=== PATIENT | male | born 1995 | race Caucasian/White ===

== ENCOUNTER 2023-11-17 17:00 | Inpatient (IN) | payer OTHER ==
[2023-11-17] MEDS ORDERED: Sodium Chloride 0.9% 20 ML SDV IV PRN (17:08)
[2023-11-17 17:16] LABS: BASOPHILS ABSOLUTE AUTO 0.02 K/uL (0.00-0.20); BASOPHILS PERCENT AUTO 0.2 % (0.0-1.0); HEMATOCRIT 38.1 % (42.0-52.0); HEMOGLOBIN 13.3 g/dL (14.0-18.0); IMMATURE GRAN ABSOLUTE AUTO 0.05 K/uL (0.00-0.05); IMMATURE GRAN PERCENT AUTO 0.5 % (0.0-0.4); LYMPHOCYTES ABSOLUTE AUTO 2.32 K/uL (1.00-4.80); LYMPHOCYTES PERCENT AUTO 24.4 % (24.0-44.0); MEAN CORPUSCULAR HEMOGLOBIN 29.7 pg (28.0-32.0); MEAN CORPUSCULAR HGB CONC 34.9 g/dL (32.0-36.0); MEAN PLATELET VOLUME 10.6 fL (9.4-12.4); MONOCYTES PERCENT AUTO 5.3 % (0.0-8.0); NEUTROPHILS ABSOLUTE AUTO 6.62 K/uL (1.80-7.70); NEUTROPHILS PERCENT AUTO 69.6 % (41.0-71.0); PLATELET COUNT,PLT 203 K/uL (150-400); RED BLOOD CELL COUNT 4.48 M/uL (4.52-5.90); WHITE BLOOD CELL COUNT,WBC 9.51 K/uL (3.9-11.3)
[2023-11-17] MEDS: Midazolam 1 MG/ML 2 ML SDV IVPUSH ONE (17:22)
[2023-11-17 17:30] LABS: INR 1.03 (0.86-1.11); PTT,PARTIAL THROMBOPLSTIN TIME 25.8 SEC (23.9-30.7)
[2023-11-17 17:44] LABS: A/G RATIO 1.1 (0.9-1.6); ALBUMIN 3.6 g/dL (3.4-5.0); BILIRUBIN TOTAL 0.6 mg/dL (0.2-1.0); CALCIUM 8.3 mg/dL (8.5-10.1); CREATININE 1.2 mg/dL (0.8-1.3); EST CRCL DRUG DOSING (CG) 94.63 mL/min; POTASSIUM,K 3.8 mmol/L (3.5-5.1); PROTEIN TOTAL,TP 6.9 g/dL (6.4-8.2)
[2023-11-17] MEDS: Midazolam 1 MG/ML 2 ML SDV ONE (17:54)
[2023-11-17] MEDS: cefTRIAXone 2 GM in Sodium Chloride 0.9% 50 ML IV ONE (17:56)
[2023-11-17] MEDS: Diphtheria,Pertussis(Acell),Tetanus Vaccine 0.5 ML Syringe IM ONE (17:57)
[2023-11-17] MEDS: Sodium Chloride 0.9% 2.5 ML Syringe FLUSH PRN (17:57)
[2023-11-17] MEDS: Sodium Chloride 0.9% 10 ML Syringe FLUSH PRN (17:57)
[2023-11-17] MEDS: Lidocaine 1% with EPINEPHrine 1:200,000 30 ML SDV INJECT ONE (17:57)
[2023-11-17] MEDS: fentaNYL 100 MCG/2 ML SDV IVPUSH ONE (18:30)
[2023-11-17] MEDS: Lidocaine/Epineph/Tetracaine 3 ML Syringe TOP ONE (19:44)
[2023-11-17] MEDS: HYDROmorphone 0.5 MG/0.5 ML Syringe IVPUSH ONE ×2 (19:48→20:41)
[2023-11-17] MEDS ORDERED: Ondansetron 4 MG/2 ML SDV IVPUSH PRN (23:19)
[2023-11-17] MEDS ORDERED: Naloxone 0.4 MG/ML SDV IVPUSH PRN (23:19)
[2023-11-18] MEDS: HYDROmorphone 0.5 MG/0.5 ML Syringe IVPUSH PRN (00:07)
[2023-11-18] MEDS: Acetaminophen 1,000 MG in Premix Bag 1 BAG IV SCH (00:11)
[2023-11-18] MEDS: Lactated Ringers 1,000 ML IV SCH (02:23)
[2023-11-18] MEDS: Bacitracin Oint 1 GM U/D Packet TOP ONE (03:42)
[2023-11-18] MEDS: Acetaminophen/oxyCODONE 325-5 MG Tab PO PRN (04:16)
[2023-11-18 05:50] LABS: BASOPHILS ABSOLUTE AUTO 0.02 K/uL (0.00-0.20); BASOPHILS PERCENT AUTO 0.2 % (0.0-1.0); EOSINOPHILS ABSOLUTE AUTO 0.01 K/uL (0.00-0.45); EOSINOPHILS PERCENT AUTO 0.1 % (0.0-6.0); HEMATOCRIT 38.3 % (42.0-52.0); HEMOGLOBIN 13.2 g/dL (14.0-18.0); IMMATURE GRAN ABSOLUTE AUTO 0.04 K/uL (0.00-0.05); IMMATURE GRAN PERCENT AUTO 0.4 % (0.0-0.4); LYMPHOCYTES ABSOLUTE AUTO 2.21 K/uL (1.00-4.80); LYMPHOCYTES PERCENT AUTO 20.5 % (24.0-44.0); MEAN CORPUSCULAR HEMOGLOBIN 29.6 pg (28.0-32.0); MEAN CORPUSCULAR HGB CONC 34.5 g/dL (32.0-36.0); MEAN CORPUSCULAR VOLUME 85.9 fL (83.0-99.0); MEAN PLATELET VOLUME 11.1 fL (9.4-12.4); MONOCYTES ABSOLUTE AUTO 1.13 K/uL (0.00-0.80); MONOCYTES PERCENT AUTO 10.5 % (0.0-8.0); NEUTROPHILS ABSOLUTE AUTO 7.37 K/uL (1.80-7.70); NEUTROPHILS PERCENT AUTO 68.3 % (41.0-71.0); PLATELET COUNT,PLT 199 K/uL (150-400); RED BLOOD CELL COUNT 4.46 M/uL (4.52-5.90); WHITE BLOOD CELL COUNT,WBC 10.78 K/uL (3.9-11.3)
[2023-11-18 06:15] LABS: CALCIUM 8.1 mg/dL (8.5-10.1); CARBON DIOXIDE,CO2 29.8 mmol/L (21.0-32.0); EST CRCL DRUG DOSING (CG) 120.71 mL/min; POTASSIUM,K 3.8 mmol/L (3.5-5.1)
[2023-11-19] MEDS ORDERED: Acetaminophen 1,000 MG in Premix Bag 1 BAG IV PRN (10:43)
[2023-11-19] MEDS: Acetaminophen 325 MG Tab PO PRN (11:06)
== END 2023-11-19 16:45 | disposition home or self-care (01) | DRG 982 ==
LOC: MW.ED 17:00 → MW.MS 22:50
PROVIDERS: ADMIT Surgery; ATTEND Surgery
PROC: 0W9B30Z Drainage of Left Pleural Cavity with Drainage Device, Percutaneous Approach (ICD-10-PCS; principal; 2023-11-17)
PROC: 0JQ00ZZ Repair Scalp Subcutaneous Tissue and Fascia, Open Approach (ICD-10-PCS; 2023-11-17)
PROC: 0JQ10ZZ Repair Face Subcutaneous Tissue and Fascia, Open Approach (ICD-10-PCS; 2023-11-17)
DX: S27.0XXA Traumatic pneumothorax, initial encounter (principal); S22.32XA Fracture of one rib, left side, initial encounter for closed fracture; S01.81XA Laceration without foreign body of other part of head, initial encounter; S01.01XA Laceration without foreign body of scalp, initial encounter; F41.9 Anxiety disorder, unspecified; Z88.0 Allergy status to penicillin; Z79.899 Other long term (current) drug therapy; V89.2XXA Person injured in unspecified motor-vehicle accident, traffic, initial encounter
CPT/HCPCS: 12002; 12004; 12015; 32551; 36415; 70450; 70450-26; 70486; 70486-26; 71045; 71045-26; 71046; 71046-26; 71260; 71260-26; 72125; 72125-26; 72128-26; 72131-26; 74177; 74177-26; 80048; 80053; 83690; 85025; 85610; 85730; 86850; 86900; 86901; 90471; 90715; 93005; 93010; 96365; 96375; 96376; 99291; A9270-GY; G0390; J0131; J0696; J1170; J2250; J3010; J3490; J7120